=== PATIENT | female | born 1995 | race Caucasian/White ===

== ENCOUNTER → 2018-09-19 | Outpatient (CLI) | payer OTHER, BC | LOC: LAB 08:11 | DX: J02.9 Acute pharyngitis, unspecified (principal) ==

== ENCOUNTER → 2020-12-07 | Outpatient (CLI) | payer BC | LOC: LAB 11:02 | DX: J02.9 Acute pharyngitis, unspecified (principal) ==

== ENCOUNTER → 2022-11-18 | Outpatient (CLI) | payer OTHER ==
[~2022-11-18] VITALS: Ht 170.2 cm; Wt 145.8 kg
[2022-11-18 10:56] LABS: BASO # 0.02 K/mm3 (0.02-0.10); EOS # 0.04 K/mm3 (0.04-0.40); EOS % 0.5 % (1.0-5.0); HEMATOCRIT 39.9 % (37.0-47.0); HEMOGLOBIN 12.9 g/dL (12.5-16.0); LYMPH# 1.81 K/mm3 (1.50-4.00); MEAN CELL VOLUME 87 fl (78-100); MEAN CORPUSCULAR HEMOGLOBIN 28 pg (27-31); MEAN CORPUSCULAR HGB CONC 32 g/dL (33-37); MEAN PLATELET VOLUME 10.8 fl (7.4-10.4); MONO # 0.55 K/mm3 (0.20-0.80); NEU # 5.26 K/mm3 (1.40-6.50); PLATELET COUNT 242 K/mm3 (130-400); RED BLOOD COUNT 4.59 M/mm3 (4.10-5.30); RED CELL DISTRIBUTION WIDTH 12.6 % (11.5-14.5); WHITE BLOOD COUNT 7.7 K/mm3 (4.8-10.8)
[2022-11-18 11:18] LABS: ALBUMIN 4.1 g/dL (3.5-5.0); POTASSIUM 3.6 mmol/L (3.5-5.1); SODIUM 140 mmol/L (136-145)
[2022-11-18 11:19] LABS: CALCIUM 9.4 mg/dL (8.3-10.5)
[2022-11-18 11:20] LABS: GLUCOSE 102 mg/dL (65-105); TOTAL PROTEIN 7.9 g/dL (6.4-8.3)
[2022-11-18 11:21] LABS: CARBON DIOXIDE 22 mmol/L (22-29)
[2022-11-18 11:22] LABS: TOTAL BILIRUBIN 0.3 mg/dL (0.2-1.2)
[2022-11-18 11:25] LABS: AST-SGOT 28 U/L (5-34)
[2022-11-18 11:26] VITALS: BP 168/98
[2022-11-18 11:27] LABS: ALT/SGPT 61 U/L (0-55)
[2022-11-18 11:36] LABS: TROPONIN-I < 0.030 ng/mL (<0.030)
== END ==
LOC: LAB 10:21
PROVIDERS: Nurse Practitioner Family
DX: I10 Essential (primary) hypertension (principal); R07.9 Chest pain, unspecified